=== PATIENT | male | born 1990 ===

== ENCOUNTER 2021-11-04 21:39 | Emergency (ER) | payer SELFPAY ==
[2021-11-04] MEDS ORDERED: TETANUS,DIPH,PERTUSS(ACELL) VACCINE 0.5 ML SYRINGE IM ONE (21:49)
[2021-11-04 21:53] VITALS: BP 133/89
--- NOTE | 2021-11-04 21:56 | Emergency Department Report ---
ED General Adult HPI - General Stated complaint: STEPPED ON NAIL/RT FOOT PAIN Time Seen by Provider: 11/04/21 21:48 - History of Present Illness Initial comments: Patient presents with complaints of right foot pain after stepping on a nail yesterday. Patient states that the nail did go through his shoe. He states he cleaned the wound with alcohol and peroxide. Mild pain today. He is unsure of his last tetanus vaccination. No known drug allergies per patient. He also denies any numbness tingling weakness or difficulty moving his foot. No fever/chills/sweats per patient. - Related Data Previous Rx's Medication Instructions Recorded Last Taken Type Prednisone [Prednisone 10 mg 10 mg PO .TAPER #1 tab.ds.pk 04/18/14 Unknown Rx (6-Day Pack, 21 Tabs)] Mupirocin [Bactroban 2% OINT] 1 applic TP TID 7 Days #1 tube 11/04/21 Unknown Rx cephALEXin [Keflex] 500 mg PO Q8HR 7 Days #21 cap 11/04/21 Unknown Rx levoFLOXacin [Levaquin TAB] 750 mg PO QDAY 5 Days #5 tablet 11/04/21 Unknown Rx Allergies Allergy/AdvReac Type Severity Reaction Status Date / Time No Known Allergies Allergy Verified 04/18/14 11:37 ED Review of Systems ROS: Stated complaint: STEPPED ON NAIL/RT FOOT PAIN Other details as noted in HPI Constitutional: denies: chills, fever Musculoskeletal: denies: joint swelling, arthralgia Skin: change in color. denies: rash Neurological: denies: numbness, paresthesias ED Past Medical Hx - Social History Smoking Status: Never Smoker Substance Use Type: None - Medications Home Medications: Home Medications Medication Instructions Recorded Confirmed Last Taken Type Prednisone [Prednisone 10 mg 10 mg PO .TAPER #1 tab.ds.pk 04/18/14 Unknown Rx (6-Day Pack, 21 Tabs)] Mupirocin [Bactroban 2% OINT] 1 applic TP TID 7 Days #1 tube 11/04/21 Unknown Rx cephALEXin [Keflex] 500 mg PO Q8HR 7 Days #21 cap 11/04/21 Unknown Rx levoFLOXacin [Levaquin TAB] 750 mg PO QDAY 5 Days #5 tablet 11/04/21 Unknown Rx ED Physical Exam - General General appearance: alert, in no apparent distress - Head Head exam: Present: atraumatic, normocephalic - Respiratory Respiratory exam: Absent: respiratory distress - Cardiovascular Cardiovascular Exam: Present: regular rate - Neurological Exam Neurological exam: Present: alert, oriented X3 - Psychiatric Psychiatric exam: Present: normal affect, normal mood - Skin Skin exam: Present: warm, dry, intact, normal color, other (Small circular scabbed over puncture wound noted to mid plantar surface of the right foot with mild surrounding erythema and mild tenderness to palpation). Absent: rash ED Medical Decision Making - Medical Decision Making Patient presents with complaints of right foot pain after stepping on a nail yesterday. Patient states that the nail did go through his shoe. He states he cleaned the wound with alcohol and peroxide. Mild pain today. He is unsure of his last tetanus vaccination. No known drug allergies per patient. He also denies any numbness tingling weakness or difficulty moving his foot. No fever/chills/sweats per patient. Patient prescribed Levaquin and Keflex. Discussed wound care and signs and symptoms that should prompt immediate return to the ED with patient who verbalized understanding. He is well-appearing and stable for discharge home. Follow-up with PCP recommended as needed Critical care attestation.: If time is entered above; I have spent that time in minutes in the direct care of this critically ill patient, excluding procedure time. ED Disposition Clinical Impression: Puncture wound of foot Qualifiers: Encounter type: initial encounter Laterality: right Qualified Code(s): S91.331A - Puncture wound without foreign body, right foot, initial encounter Disposition: HOME / SELF CARE / HOMELESS Is pt being admited?: No Condition: Stable Instructions: Puncture Wound Prescriptions: Mupirocin [Bactroban 2% OINT] 1 applic TP TID 7 Days #1 tube cephALEXin [Keflex] 500 mg PO Q8HR 7 Days #21 cap levoFLOXacin [Levaquin TAB] 750 mg PO QDAY 5 Days #5 tablet Referrals: PRIMARY CARE [Referring] - 3-5 Days [facility] [Provider Group] - 3-5 Days
== END 2021-11-04 22:11 | disposition home or self-care (01) ==
LOC: ED 21:39
DX: S91.331A Puncture wound without foreign body, right foot, initial encounter (principal); Z79.899 Other long term (current) drug therapy; W45.0XXA Nail entering through skin, initial encounter; Y93.89 Activity, other specified; Y92.89 Other specified places as the place of occurrence of the external cause; Y99.8 Other external cause status
CPT/HCPCS: 90471; 90715; 99282